=== PATIENT | male | born 1985 | race Caucasian/White ===

== ENCOUNTER 2016-11-23 00:03 | Emergency (ER) | payer MEDICAID ==
[~2016-11-23] VITALS: Ht 185.4 cm; Wt 113.4 kg
[2016-11-23 00:19] VITALS: BP 178/85; PULSE 85; RESP 17; TEMP 98.6; O2SAT 100
[2016-11-23 00:35] LABS: BASOPHILS # (AUTO) 0.1 K/uL (0.0-0.2); BASOPHILS % (AUTO) 0.8 % (0.0-2.0); EOSINOPHILS # (AUTO) 0.2 K/uL (0.0-0.4); EOSINOPHILS % (AUTO) 1.1 % (0.0-4.0); HEMATOCRIT 48.5 % (36-54); HEMOGLOBIN 16.6 g/dL (14.0-18.0); LYMPHOCYTES # (AUTO) 6.7 K/uL (1.0-5.5); MEAN CORPUSCULAR HEMOGLOBIN 30 pg (27-31); MEAN CORPUSCULAR HGB CONC 34 % (32-36); MEAN CORPUSCULAR VOLUME 88 fL (79.0-98.0); MONOCYTES # (AUTO) 0.9 K/uL (0.0-1.0); MONOCYTES % (AUTO) 6.2 % (1.7-9.3); NEUTROPHILS # (AUTO) 6.1 K/uL (1.8-7.7); NEUTROPHILS % (AUTO) 43.9 % (40.0-70.0); PLATELET COUNT (AUTO) 226 K/uL (130-430); RED CELL DISTRIBUTION WIDTH 13.1 % (9.0-15.0)
[2016-11-23 00:35] LABS: BILIRUBIN,URINE NEGATIVE (NEGATIVE); BLOOD, URINE NEGATIVE (NEGATIVE); CLARITY/URINE CLEAR (CLEAR); COLOR,URINE YELLOW (YELLOW); GLUCOSE,URINE NEGATIVE (NEGATIVE); KETONES,URINE NEGATIVE (NEGATIVE); LEUKOCYTE ESTERASE ,URINE NEGATIVE (NEGATIVE); NITRITE, URINE NEGATIVE (NEGATIVE); PH,URINE 5.5 (5.0-8.0); PROTEIN URINE NEGATIVE (NEGATIVE); UROBILINOGEN,URINE 0.2 (0.2-1.0)
[2016-11-23 00:41] LABS: CALCIUM 8.7 mg/dL (8.4-11.0); CREATININE 1.51 mg/dL (0.55-1.30); POTASSIUM 3.7 mmol/L (3.5-5.1)
[2016-11-23 00:46] LABS: ALBUMIN 3.8 g/dL (3.4-4.8); TOTAL BILIRUBIN 0.3 mg/dL (0.0-1.0); TOTAL PROTEIN, SERUM 7.1 g/dL (6.4-8.3)
[2016-11-23] MEDS ORDERED: LORazepam 2 MG/ML VIAL IVP ONE (01:15)
[2016-11-23] MEDS ORDERED: NACL 0.9% 1,000 ML IV ONE (01:15)
[2016-11-23] MEDS ORDERED: LORazepam 2 MG/ML VIAL (FOR ER USE) ONE (01:35)
[2016-11-23 03:20] LABS: CALCIUM 8.1 mg/dL (8.4-11.0); CREATININE 1.34 mg/dL (0.55-1.30); POTASSIUM 3.9 mmol/L (3.5-5.1)
[2016-11-23 03:45] VITALS: BP 116/57; PULSE 62; RESP 16; TEMP 98.3; O2SAT 98
== END 2016-11-23 03:45 | disposition home or self-care (01) ==
LOC: SED 00:03
DX: N17.9 Acute kidney failure, unspecified (principal); E86.0 Dehydration; F41.9 Anxiety disorder, unspecified
CPT/HCPCS: 36415; 71010; 80048; 80053; 81003; 83605; 83880; 84484; 85025; 93005; 96361; 96374; 99285; J2060; J7030